=== PATIENT | female | born 2000 | race Caucasian/White ===

== ENCOUNTER 2024-10-29 14:58 | Emergency (ER) | payer SELFPAY ==
[2024-10-29 15:00] VITALS: BP 145/89
--- NOTE | 2024-10-29 16:56 | ED.SKININJ ---
HPI-Injury
General
Chief Complaint: Bite
Time Seen by Provider: 10/29/24 16:18
History of Present Illness-Injury
Initial Injury comments:
See MDM
Phy Exam
Physical Exam
Physical Exam:
See MDM
Course
Orders/Labs/Results
Orders:
Orders
10/29/24 16:56
Amoxicillin 875 mg/Clav 125 mg [Augmentin 875 mg/125 mg] 1 tablet PO NOW STA
Vital Signs
Initial and Last Documented VS:
Initial Vital Signs
Temp Pulse Resp BP Pulse Ox
98.1 F 91 20 145/89 98
10/29/24 15:00 10/29/24 15:00 10/29/24 15:00 10/29/24 15:00 10/29/24 15:00
Last Documented Vital Signs
Temp Pulse Resp BP Pulse Ox
98.1 F 91 20 145/89 98
10/29/24 15:00 10/29/24 15:00 10/29/24 15:00 10/29/24 15:00 10/29/24 16:56
Procedures
Laceration Closure
Right Middle Anterior Medial Thigh:
Status of Wound: clean
Size of Wound in cm: 4
Preparation: cleaned with soap & water and cleaned with Betadine
Anesthesia: 1% Lidocaine with epi
Revision/Debridement: routine- no revision
Wound exploration: explored to base- no FB
Type of Closure: single layer closure
Skin Closure Material: 4-0 nylon
Number of sutures: 8
MDM/Problems Addressed
Differential Diagnosis Includes:
Note:
CHIEF COMPLAINT(S)
Dog bite wound.
HISTORY OF PRESENT ILLNESS
The patient is a 24-year-old female who presented after sustaining a dog bite wound at a meet and greet event, where multiple dogs were present. The wound is open, and there is a concern about infection. The patient expresses familiarity with
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 She was advised against closing the wound to prevent bacterial entrapment; however, due to the nature of the wound, it was decided to proceed with closure after
thorough cleaning and debridement with Betadine. Antibiotic treatment will be initiated to mitigate infection risk.
PHYSICAL EXAM
General: Alert, no acute distress.
Skin: Warm, dry. 4 cm laceration to right medial thigh
Head: Normocephalic, atraumatic
Neck: Appears supple, trachea midline.
Eyes, Ears, Nose, Mouth, and Throat: Oral mucosa moist.
Cardiovascular: No signs of cyanosis
Respiratory: Respirations are non-labored.
Abdomen: Non-distended
Musculoskeletal: No deformities
Neurological: No focal neurological deficit observed.
Psychiatric: Cooperative, appropriate mood and affect.
PLAN
- Clean and debride the wound using Betadine.
- Close the wound despite potential infection risk, considering the severity.
- Initiate antibiotic therapy.
- Verify if the patients tetanus immunization is up to date and administer if necessary.
- Follow up on the condition of the wound and the progression of healing, advising the patient to seek immediate care if signs of infection appear.
DIFFERENTIAL DIAGNOSIS
The Differential Diagnosis includes, in no particular order and is not limited to:
1. Bacterial infection due to the dog bite
2. Cellulitis
3. Abscess formation
4. Tetanus
5. Rabies (less likely given the closed environment)
6. Soft tissue injury
7. Foreign body in the wound
8. Allergic reaction to antibiotics (if previously experienced)
9. Hematoma
10. Wound dehiscence
Disposition:
SUMMARY OF ENCOUNTER
The patient, a 24-year-old female, presented to the emergency department with a dog bite wound incurred at a meet and greet event with multiple dogs present. The wound was open with a concern for potential infection. After a detailed discussion, the
decision was made to clean and debride the wound thoroughly with Betadine before proceeding with closure. Augmentin (amoxicillin and clavulanate) was prescribed for its broad-spectrum coverage, specifically targeting potential bacterial infections
from the mammalian bite.
DISPOSITION
The patient was discharged home comfortably with appropriate instructions and understanding of return precautions.
PLAN
- Clean and debride the wound using Betadine and proceed with closure.
- Start the patient on amoxicillin-clavulanate (Augmentin) for infection prophylaxis.
- Reassure the patients tetanus status is up to date.
- Advise the patient to follow up with the [facility] regarding the dog bite and monitor for any signs of infection.
PATIENT EDUCATION AND COUNSELING
The patient was educated on wound care, signs of infection, and the importance of adhering to the prescribed antibiotic regimen. She was counseled on return precautions should signs of infection arise.
FOLLOW-UP INSTRUCTIONS
The patient is advised to follow up with the [facility] regarding the incident and seek immediate care if any signs of infection appear.
MEDICATION RECONCILIATION
- Prescribed amoxicillin-clavulanate (Augmentin) for infection prophylaxis.
- Confirmed patients tetanus immunization is up to date.
MEDICAL DECISION MAKING
-Complexity of Data Reviewed: The differential diagnoses considered included bacterial infection due to the dog bite, cellulitis, abscess formation, tetanus, soft tissue injury, allergic reaction to antibiotics, hematoma, and wound dehiscence.
DATA
Category 1
- Tests and documents: Wound cleaning and closure was performed based on clinical evaluation and history.
RISK
- Prescription medication was prescribed: Amoxicillin-clavulanate (Augmentin) for potential bacterial prophylaxis.
- Consideration of Admission/Observation: Escalation of care including admission/observation was considered given the complexity and risk of the patients presenting complaint, exam findings, and/or their underlying comorbidities. However,
ultimately, the patient is deemed safe for outpatient management with close follow-up. Reasoning: Work-up reassuring, does not reveal any acute life/organ-threatening processes, patients symptoms well-controlled upon reevaluation, reexamination is
reassuring, vitals are stable, patient agreeable with discharge, reliable for follow-up.
DIAGNOSIS
- Dog bite wound, initial encounter (ICD-10: S01.451A)
- Other superficial bite of the left hand, initial encounter (ICD-10: S61.451A)
- Infection prophylaxis (ICD-10: Z29.8)
*Pulse Oximetry
SaO2: 98
Oxygen Mode of Delivery: Room air
Patient hypoxic: no
*Critical Care Note
Total Time (30-74mins, 75-104mins- exclusive of procedures): Not Applicable
ED Attending Note
-
Portions of this chart may have been created with voice recognition software.� Occasional wrong word or��sound alike� substitutions may have occurred due to the inherent limitations of voice recognition software.
Discharge Plan
Departure
Patient Disposition: Home (Routine Discharge)
Date of Disposition: 10/29/24
Time of Disposition: 16:56
Patient with high blood pressure during this ER visit?: No
Discharge Problem:
Dog bite
Instructions: Animal Bites (DC)
Prescriptions:
New
amoxicillin-pot clavulanate 875-125 mg tablet
1 tab PO BID Qty: 14 0RF
Activity Restrictions/Additional Instructions:
Keep wound clean and dry, change dressing if it becomes soiled or wet. Watch for signs of infection: fever over 100.5', increasing pain, red streaks around wound, swelling, drainage of pus, or bad smell. If any of these happen, return to ED
promptly. Return to ED or make an appointment with your doctor to have the 8 sutures removed in 7-10 days. All wounds may scar, however you may reduce the appearance of scarring by avoiding sun exposure to the scar and applying skin moisturizer
with spf protection to the scar once the wound is healed.
Interventions
Interventions:
*Risk Screen - Suicide Last Done: 10/29/24 16:34
*General Assessment Last Done: 10/29/24 15:00
*Neglect/Abuse Screening Last Done: 10/29/24 16:34
*ED- Fall Risk Assessment Last Done: 10/29/24 16:34
*ED COVID-19 Vaccine History Last Done: 10/29/24 16:34
ED-Skin Assessment Last Done: 10/29/24 16:34
Discharge Date and Time
Print Language: MONGOLIAN
[2024-10-29] MEDS: AUGMENTIN 875 MG/125 MG 1 TABLET PO (17:11)
== END 2024-10-29 17:27 | disposition home or self-care (01) ==
LOC: EMR 14:58
PROVIDERS: EMERGENCY PHYSICIAN Student in an Organized Health Care Education/Training Program; FAMILY PHYSICIAN Family Medicine
DX: S71.111A Laceration without foreign body, right thigh, initial encounter (principal); W54.0XXA Bitten by dog, initial encounter
CPT/HCPCS: 12002; 99283